=== PATIENT | female | born 1960 | race Caucasian/White ===

== ENCOUNTER 2018-12-05 02:52 | Emergency (ER) | payer OTHER ==
[2018-12-05 04:19] VITALS: BP 145/83; PULSE 66; TEMP 97.9; BMI 29.8
--- NOTE | 2018-12-05 04:45 | PDOC ---
*Physical Exam - Vital Signs Last Vital Signs Temp Pulse Resp BP Pulse Ox 97.9 F 66 17 145/83 98 12/05/18 04:11 12/05/18 04:11 12/05/18 04:11 12/05/18 04:11 12/05/18 04:11 Medical Decision Making - Medical Decision Making 12/05/18 04:45 Patient seen by the advanced practice provider under my direct supervision. Ancillary testing reviewed as necessary. I agree with plan as outlined by the advanced practice provider. Discharge - Discharge Information Problems reviewed: Yes Clinical Impression/Diagnosis: Left eye pain Condition: Fair Disposition: HOME - Follow up/Referral Referrals: Jamel Lynch [Staff Physician] - (go to office at 8 am) Aguilar Washington MD [Primary Care Provider] - - Patient Discharge Instructions Additional Instructions: keep the patch on do not rub the eyes - Post Discharge Activity Work/Back to School Note: Back to Work
--- NOTE | 2018-12-05 05:24 | PDOC ---
History of Present Illness - General Chief Complaint: Eye Problem Stated Complaint: EYE PAIN AND SWELLING Time Seen by Provider: 12/05/18 04:38 History Source: Patient - History of Present Illness Initial Comments: 12/05/18 05:24 58-year-old female complaining of left eye redness, swelling and pain. Patient was seen by retinal surgeon Dr. Navin Plascencia yesterday and was given a shot inside the eye. Patient was advised to come to the emergency room for any worsening pain to the eye. Patient denies vision loss. Patient reports some floaters. Conjunctival erythema noted. Past History - Past Medical History Allergies/Adverse Reactions: Allergies Allergy/AdvReac Type Severity Reaction Status Date / Time No Known Allergies Allergy Verified 12/05/18 04:19 Home Medications: Ambulatory Orders Aspirin [ASA -] 81 mg PO DAILY 03/30/12 Interferon Beta-1B [Extavia] 0.3 mg SQ UTDICT 03/30/12 Shedd Oil/[place]-3 Fatty Acids [Fish Oil 500 mg Softgel] 1 tab PO DAILY Vitamin B Complex [B-100 Complex] 1 each PO DAILY 03/30/12 Polyethylene Glycol 3350 [Miralax 255 gm Btl] 17 gm PO DAILY #1 bottle 03/31/12 Psyllium Seed [Metamucil] 1 each PO BID #0 packet 03/31/12 Anemia: No Asthma: No Cancer: No Cardiac Disorders: No CVA: No COPD: No CHF: No Dementia: No Diabetes: No GI Disorders: No Disorders: No HTN: No Hypercholesterolemia: No Liver Disease: No Thyroid Disease: No - Surgical History Abdominal Surgery: No Appendectomy: No Cardiac Surgery: No Cholecystectomy: No Lung Surgery: No Neurologic Surgery: No Orthopedic Surgery: No - Psycho Social/Smoking Cessation Hx Smoking History: Never smoked Have you smoked in the past 12 months: No Hx Alcohol Use: Yes (SOCIALLY) Drug/Substance Use Hx: No Substance Use Type: None Hx Substance Use Treatment: No Review of Systems - Review of Systems Able to Perform ROS?: Yes Is the patient limited Turkish proficient: No HEENTM: Yes: Eye Pain, Tearing *Physical Exam - Vital Signs Last Vital Signs Temp Pulse Resp BP Pulse Ox 97.9 F 66 17 145/83 98 12/05/18 04:11 12/05/18 04:11 12/05/18 04:11 12/05/18 04:11 12/05/18 04:11 - Physical Exam General Appearance: Yes: Appropriately Dressed HEENT: positive: Other (pupils reactive, + conjuntival erythema, upper and lower lid swelling noted. EOM intact) Medical Decision Making - Medical Decision Making A: Left eye redness 12/05/18 05:[address] Lynch ([employer]). recommends one dose of erythromycin and patch eye. patient to be seen in the office at 8 am Discharge - Discharge Information Problems reviewed: Yes Clinical Impression/Diagnosis: Left eye pain Condition: Fair Disposition: HOME - Follow up/Referral Referrals: Aguilar Washington MD [Primary Care Provider] - Jamel Lynch [Staff Physician] - (go to office at 8 am) - Patient Discharge Instructions Additional Instructions: keep the patch on do not rub the eyes - Post Discharge Activity Work/Back to School Note: Back to Work
[2018-12-05] MEDS ORDERED: ERYTHROMYCIN 0.5% OPHTHALMIC OINTMENT 3.5 GM TUBE OS ONE (05:26)
[2018-12-05] MEDS ORDERED: ERYTHROMYCIN 0.5% OPHTHALMIC OINTMENT 3.5 GM TUBE ONE (05:39)
== END 2018-12-05 05:51 | disposition home or self-care (01) ==
LOC: JER 02:52
DX: H57.12 Ocular pain, left eye (principal)
CPT/HCPCS: 99281-25